=== PATIENT | male | born 1975 | race African-American/Black ===

== ENCOUNTER 2021-10-08 08:39 | Emergency (ER) | payer SELFPAY ==
[2021-10-08] MEDS ORDERED: Tetracaine 0.5% PF 4 ML BOT ONE (08:57)
[2021-10-08] MEDS ORDERED: Fluorescein Opthalmic Strip ONE (08:57)
== END 2021-10-08 09:25 | disposition home or self-care (01) ==
LOC: NAV ERS 08:39
DX: H10.11 Acute atopic conjunctivitis, right eye (principal); I10 Essential (primary) hypertension; F17.210 Nicotine dependence, cigarettes, uncomplicated
CPT/HCPCS: 99283

== ENCOUNTER 2022-09-05 12:19 | Emergency (ER) | payer BC, SELFPAY ==
[2022-09-05] MEDS ORDERED: Ibuprofen 800 MG TAB ONE (12:58)
== END 2022-09-05 13:50 | disposition home or self-care (01) ==
LOC: NAV ERS 12:19
DX: B34.9 Viral infection, unspecified (principal); I10 Essential (primary) hypertension; F17.290 Nicotine dependence, other tobacco product, uncomplicated; Z79.899 Other long term (current) drug therapy
CPT/HCPCS: 87081; 87430; 87804; 99284

== ENCOUNTER 2022-12-30 21:40 | Emergency (ER) | payer BC ==
[2022-12-30 22:06] LABS: #Basophils 0.1 thou/uL (0.0-0.2); #Eosinphils 0.1 thou/uL (0.0-0.7); #Lymphocytes 1.6 thou/uL (1.20-3.40); #Monocytes 0.4 thou/uL (0.11-0.59); #Neutrophils 4.3 thou/uL (1.40-6.50); %Basophils 1.1 % (0.0-1.0); %Lymphocytes 24.5 % (21.0-51.0); %Monocytes 6.8 % (0.0-10.0); %Neutrophils 66.6 % (42.0-75.0); Hemoglobin 17.1 g/dL (14.0-18.0); Mean Corpuscular HGB CONC 32.5 g/dL (32.0-36.0); Mean Corpuscular Hemoglobin 28.3 pg (27.0-31.0); Mean Corpuscular Volume 86.8 fl (78.0-98.0); Mean Platelet Volume 6.7 fL (7.4-10.4); Platelet Count 307 10x3/uL (130-400); RBC Distribution Width 11.9 % (11.5-14.5); Red Blood Cell (RBC) Count 6.05 mill/uL (4.70-6.10); White Blood Cell (WBC) Count 6.4 10x3/uL (4.8-10.8)
[2022-12-30 22:24] LABS: ALT (SGPT) 25 U/L (8-55); AST (SGOT) 23 U/L (5-34); Albumin 4.4 g/dL (3.5-5.0); Alkaline Phosphatase 64 U/L (40-110); Anion Gap 17 mmol/L (10-20); BUN (Urea Nitrogen) 26 mg/dL (8.9-20.6); Bilirubin, Total 0.7 mg/dL (0.2-1.2); CK (CPK) 205 U/L (30-200); Calc. Creatinine Clearance 0 mL/min (70-130); Calcium 9.6 mg/dL (7.8-10.44); Carbon Dioxide 25 mmol/L (22-29); Chloride 101 mmol/L (98-107); Estimated GFR 39; Globulin 2.5 g/dL (2.4-3.5); Glucose 100 mg/dL (70-105); Potassium 4.3 mmol/L (3.5-5.1); Protein, Total 6.9 g/dL (6.0-8.3); Sodium 139 mmol/L (136-145)
[2022-12-30] MEDS ORDERED: Sodium Chloride 0.9% 1,000 ML ONE (22:51)
[2022-12-30 23:55] LABS: Anion Gap 16 mmol/L (10-20); BUN (Urea Nitrogen) 26 mg/dL (8.9-20.6); Calc. Creatinine Clearance 0 mL/min (70-130); Calcium 8.8 mg/dL (7.8-10.44); Carbon Dioxide 25 mmol/L (22-29); Chloride 104 mmol/L (98-107); Estimated GFR 51; Glucose 80 mg/dL (70-105); Potassium 3.9 mmol/L (3.5-5.1); Sodium 141 mmol/L (136-145)
== END 2022-12-31 00:10 | disposition home or self-care (01) ==
LOC: NAV ERS 21:40
DX: R55 Syncope and collapse (principal); N28.9 Disorder of kidney and ureter, unspecified; I10 Essential (primary) hypertension; F17.290 Nicotine dependence, other tobacco product, uncomplicated; Z79.899 Other long term (current) drug therapy
CPT/HCPCS: 36415; 80053; 82550; 84484; 85025; 93005; 96360; 96361; J7050

== ENCOUNTER 2023-05-18 00:38 | Emergency (ER) | payer BC ==
[2023-05-18] MEDS ORDERED: Guaifenesin DM 100-10/5 ML UDCUP ONE ×2 (01:02→01:06)
[2023-05-18] MEDS ORDERED: methylPREDNISolone Acetate 40 mg/ml Vial ONE (01:31)
== END 2023-05-18 01:48 | disposition home or self-care (01) ==
LOC: NAV ERS 00:38
DX: J20.8 Acute bronchitis due to other specified organisms (principal); I10 Essential (primary) hypertension; F17.290 Nicotine dependence, other tobacco product, uncomplicated
CPT/HCPCS: 71046; 96372; J1030

== ENCOUNTER 2024-08-23 21:09 | Emergency (ER) | payer BC, SELFPAY ==
[2024-08-23] MEDS ORDERED: Ondansetron ODT 4 MG TAB ONE (21:21)
== END 2024-08-23 22:40 | disposition home or self-care (01) ==
LOC: NAV ERS 21:09
DX: K52.9 Noninfective gastroenteritis and colitis, unspecified (principal); B34.9 Viral infection, unspecified; I10 Essential (primary) hypertension; F17.290 Nicotine dependence, other tobacco product, uncomplicated
CPT/HCPCS: 99283; Q0162

== ENCOUNTER 2025-06-11 22:59 | Emergency (ER) | payer BC ==
[2025-06-11] MEDS ORDERED: Clindamycin 150 MG CAP ONE (23:27)
[2025-06-11] MEDS ORDERED: Naproxen 500 MG TAB ONE (23:27)
== END 2025-06-11 23:50 | disposition home or self-care (01) ==
LOC: NAV ERS 22:59
DX: L03.115 Cellulitis of right lower limb (principal); I10 Essential (primary) hypertension; F17.290 Nicotine dependence, other tobacco product, uncomplicated; Z79.899 Other long term (current) drug therapy
CPT/HCPCS: 99283